=== PATIENT | female | born 1960 | race Caucasian/White ===

== ENCOUNTER → 2016-07-24 | Outpatient (CLI) | payer BC, OTHER ==
--- NOTE | 2016-07-24 14:24 | REP ---
Clinical: Pain and swelling primarily along the first plantar surface. Technique: AP, lateral, bilateral oblique views. Findings: No acute fracture or dislocation. Skeletal structures, joint spaces, and surrounding soft tissues are normal for age. No significant overt osteoarthritic degenerative changes. No abnormal calcifications. Impression: Normal left foot by radiographic evaluation. Signed by Kei Crespo MD 07/24/2016 02:14 P
== END ==
LOC: M LRY 13:49
PROVIDERS: ATTEND Nurse Practitioner Family
DX: M79.672 Pain in left foot (principal)

== ENCOUNTER → 2016-11-23 | Outpatient (CLI) | payer OTHER ==
[~2016-11-23] MED LIST: SENN8.6T7 PO
--- NOTE | 2016-11-23 15:59 | REP ---
RIGHT LOWER EXTREMITY DUPLEX DOPPLER VENOUS ULTRASOUND WITH EVALUATION FOR VENOUS REFLUX: Real-time compression and duplex Doppler interrogation of right lower extremity deep vein system is performed. Right common femoral, superficial femoral and popliteal veins are fully compressible with transducer pressure and demonstrate normal spontaneous and phasic flow without evidence of deep vein thrombosis. There is partial duplication of the mid to distal superficial femoral vein. Lymph node in the right inguinal region measures 2.0 x 0.9 x 0.8 cm. Evaluation for venous reflux demonstrates reflux throughout the deep vein system of a relatively mild degree. There is no evidence of an anterior accessory greater saphenous vein. There is significant reflux throughout the greater saphenous vein in the proximal thigh. Greater saphenous vein measures 10 mm with reflux duration 3.1 seconds. In the mid-thigh dimension is 8 mm with reflux 2.2 seconds at the level of the knee greater saphenous vein diameter is 8 mm with reflux duration 1.8 seconds. Lesser saphenous vein is not visualized, reportedly this has been surgically removed. Multiple collateral vessels are seen diffusely extending to the anteromedial calf, the largest collateral is at the knee 10 mm in diameter. [employer] member is seen in the distal thigh extending from the greater saphenous vein to the superficial femoral vein distally with normal direction of flow. Signed by Willard Ferrer MD 11/23/2016 04:17 P
== END ==
LOC: M RAD 09:12
PROVIDERS: ATTEND Surgery
DX: I87.311 Chronic venous hypertension (idiopathic) with ulcer of right lower extremity (principal)

== ENCOUNTER 2017-01-09 13:05 | Day surgery (SDC) | payer OTHER ==
[~2017-01-09] VITALS: Ht 165.1 cm; Wt 65.8 kg
[2017-01-09] MEDS ORDERED: LR 1,000 ML IV ONE (13:30)
[2017-01-09] MEDS ORDERED: MIDAZOLAM INJ 2 MG/2 ML VIAL (J2250) As Ordered ONE (13:50)
[2017-01-09] MEDS ORDERED: fentaNYL 100 MCG/2 ML INJECTION (J3010) As Ordered ONE (13:50)
[2017-01-09] MEDS ORDERED: LIDOCAINE 1% SDV INJ 30 ML VIAL As Ordered ONE (13:54)
[2017-01-09] MEDS ORDERED: LIDOCAINE W/EPINEPHRINE 1% 20ML VIAL As Ordered ONE (13:54)
[2017-01-09] MEDS: PERCOCET 5MG/325MG TAB PO PRN ×2 (15:45→18:08)
[2017-01-09] MEDS ORDERED: PERCOCET 5MG/325MG TAB As Ordered ONE (15:45)
[2017-01-09] MEDS ORDERED: LR 1,000 ML IV SCH (16:00)
[2017-01-09] MEDS ORDERED: HYDROmorphone HCL 1 MG/ML SYRINGE (J1170) IV PRN (16:00)
[2017-01-09] MEDS ORDERED: ONDANSETRON 4MG/2ML VIAL (J2405) IV PRN (16:00)
[2017-01-09] MEDS ORDERED: fentaNYL 100 MCG/2 ML INJECTION (J3010) IV PRN (16:00)
[2017-01-09 18:50] VITALS: BP 141/75
--- NOTE | 2017-02-06 17:57 | RO ---
DATE OF PROCEDURE: 01/09/2017 PREPROCEDURE DIAGNOSES: Right lower extremity varicose veins with pain. Right lower extremity valvular insufficiency in the greater saphenous vein. POSTPROCEDURE DIAGNOSES: Right lower extremity varicose veins with pain. Right lower extremity valvular insufficiency in the greater saphenous vein. OPERATIVE PROCEDURE: Right greater saphenous vein radiofrequency ablation with greater than stab phlebectomy of varicose veins in the right lower extremity. SURGEON: Mile Whitman MD TELEGRAPH EQUIPMENT MAINTAINER: ANESTHESIA: Laryngeal mask airway (LMA). ESTIMATED BLOOD LOSS: 100 mL IV FLUIDS: 500 mL SPECIMENS: Right lower extremity varicose vein. COMPLICATIONS: None. DRAINS: None. IMPLANTS: None. INDICATION: The patient is a 56-year-old female with varicose veins and pain in her lower extremities who was evaluated and found to have greater saphenous vein valvular insufficiency. Recommendation was to undergo greater saphenous vein radiofrequency ablation and stab phlebectomy of the painful varicose veins. Risks, benefits and alternative treatment options were discussed with the patient. Alternative treatment options included but were not limited to no intervention. DESCRIPTION OF PROCEDURE: The patient was taken to the operating room, placed supine on the operating room table and the right lower extremity was prepped and draped in a standard surgical fashion. The left greater saphenous vein was cannulated in the below knee region using ultrasound, after which a catheter was placed in the greater saphenous vein 2 cm distal to the saphenofemoral junction and tumescent solution injected circumferentially around the greater saphenous, which was then ablated 2 cm distal to the saphenofemoral junction to the below knee entry site. Once the radiofrequency ablation was completed the stab phlebectomies were performed with greater than 20 stab phlebectomies of varicose veins which had been marked in the standing position in the preoperative holding area. Phil were used to close the stab phlebectomy incisions. Dressings were then applied. The patient tolerated the procedure well. All instrument, sponge and needle counts were correct at the end of the case. There were no complications. Dr. Whitman was present for and directed the entire case. The patient was transferred to the recovery room, awake, alert and extubated and in stable condition.
== END 2017-01-09 18:55 | disposition home or self-care (01) ==
LOC: M SDC 13:05
PROVIDERS: ATTEND Surgery Vascular Surgery
DX: I83.811 Varicose veins of right lower extremity with pain (principal); I87.2 Venous insufficiency (chronic) (peripheral)

== ENCOUNTER → 2017-01-18 | Outpatient (CLI) | payer OTHER ==
--- NOTE | 2017-01-18 10:29 | REP ---
Right lower extremity deep vein duplex ultrasound: The patient has had superficial vein ablation. The deep veins demonstrate normal compression, normal Doppler color flow and normal Doppler waveforms with respiration augmentation at multiple levels from the popliteal vein to the common femoral vein. There is no deep vein thrombus. There is thrombus throughout the superficial saphenous vein as expected as a consequence of ablation. Signed by Willard Pratt MD 01/18/2017 10:20 A
== END ==
LOC: M RAD 09:11
PROVIDERS: ATTEND Surgery Vascular Surgery
DX: I83.811 Varicose veins of right lower extremity with pain (principal)

== ENCOUNTER → 2017-01-24 | Outpatient (CLI) | payer OTHER ==
--- NOTE | 2017-01-25 03:54 | REP ---
Clinical: Venous insufficiency . Technique: Ferrer scale and color Doppler evaluation using linear high frequency transducer with reflux evaluation . Findings: Ultrasound examination of the left lower extremity deep venous structures from the common femoral vein to the popliteal vein demonstrates normal compressibility flow and wave patterns in response to respiration and augmentation. There is no evidence for deep venous thrombosis. Reflux evaluation demonstrates significant reflux through the deep system including common femoral vein, superficial femoral vein and popliteal vein as well as the greater saphenous vein and its multiple collaterals. Specifically, proximal greater saphenous vein dilates to a 9.9 mm with reflux duration of 2 seconds; the mid greater saphenous vein dilates to a 4.8 mm with reflux duration 1.8 seconds; distal greater saphenous vein dilates to 8.2 mm with reflux duration of 2 seconds. An anterior accessory saphenous vein was identified without evidence for reflux and a lesser saphenous vein was identified without reflux draining into the Giacomini vein. Impression: 1. No evidence for deep venous thrombosis. 2. Reflux noted through the deep and superficial venous systems as described above. Signed by Kei Crespo MD 01/25/2017 03:45 A
== END ==
LOC: M RAD 10:39
PROVIDERS: ATTEND Surgery Vascular Surgery
DX: I87.2 Venous insufficiency (chronic) (peripheral) (principal)

== ENCOUNTER 2017-04-08 11:04 | Day surgery (SDC) | payer OTHER ==
[~2017-04-08] VITALS: Ht 162.6 cm; Wt 66.2 kg
[2017-04-08] MEDS ORDERED: LR 1,000 ML IV ONE (11:15)
[2017-04-08] MEDS ORDERED: PROPOFOL 200 MG/20 ML VIAL As Ordered ONE (11:23)
[2017-04-08] MEDS ORDERED: LIDOCAINE 2% INJ 100 MG/5 ML SDV (FOR ANES.) As Ordered ONE (11:23)
[2017-04-08] MEDS ORDERED: ONDANSETRON 4MG/2ML VIAL (J2405) As Ordered ONE (11:23)
[2017-04-08] MEDS ORDERED: fentaNYL 100 MCG/2 ML INJECTION (J3010) As Ordered ONE (11:24)
[2017-04-08] MEDS ORDERED: MIDAZOLAM INJ 2 MG/2 ML VIAL (J2250) As Ordered ONE (11:24)
[2017-04-08] MEDS ORDERED: LIDOCAINE 1% SDV INJ 30 ML VIAL As Ordered ONE (13:27)
[2017-04-08] MEDS ORDERED: LIDOCAINE W/EPINEPHRINE 1% 20ML VIAL As Ordered ONE ×2 (13:27→13:30)
[2017-04-08] MEDS ORDERED: MORPHINE 10 MG/ML 1ML VIAL As Ordered ONE (15:37)
[2017-04-08] MEDS: MORPHINE 10 MG/ML 1ML VIAL IV PRN ×5 (15:45→16:20)
[2017-04-08] MEDS ORDERED: ONDANSETRON 4MG/2ML VIAL (J2405) IV PRN (15:45)
[2017-04-08] MEDS ORDERED: fentaNYL 100 MCG/2 ML INJECTION (J3010) IV PRN (15:45)
[2017-04-08] MEDS ORDERED: LR 1,000 ML IV SCH (15:45)
[2017-04-08] MEDS ORDERED: PERCOCET 5MG/325MG TAB PO PRN (15:45)
[2017-04-08 17:05] VITALS: BP 138/73
--- NOTE | 2017-04-19 17:57 | RO ---
DATE OF PROCEDURE: 04/08/2017 PREOPERATIVE DIAGNOSIS: Bilateral lower extremity varicose veins, bilateral lower extremity greater saphenous vein venous insufficiency bilateral lower extremity pain and swelling. POSTOPERATIVE DIAGNOSIS: Bilateral lower extremity varicose veins, bilateral lower extremity greater saphenous vein venous insufficiency bilateral lower extremity pain and swelling. PROCEDURE: Left greater saphenous vein radiofrequency ablation, greater than 20 left lower extremity varicose vein stab phlebectomy. SURGEON: Dr. Alberto Whitman TUBE CLEANING OPERATOR: None. ANESTHESIA: Local monitored anesthetic care (MAC). ESTIMATED BLOOD LOSS: 100 mL. IV FLUIDS: 700 mL. INDICATION: Patient is a 56-year-old female with multiple varicosities in the lower extremities and in the thigh, calf, and ankle region who has a significant amount of heaviness, pain and swelling in her lower extremities who underwent an ultrasound showing that she had greater saphenous vein valvular insufficiency. Patient will undergo a left greater saphenous vein radiofrequency ablation and stab phlebectomy of painful varicose veins. Risks, benefits, and alternative treatment options were discussed with the patient, alternative treatment options included but were not limited to no intervention. PROCEDURE: Patient was taken to the operating room and placed supine on the operating room table after having the varicosities in the left lower extremity marked in the preoperative area in the standing position. Ultrasound was then used to cannulate the left greater saphenous vein after which a radiofrequency ablation was performed from 2 cm distally in the saphenofemoral junction to the entry site in the left below knee region. After the ablation the stab phlebectomies were performed with greater than 20 stab phlebectomies, varicose vein was passed for pathological evaluation and jolene were used to close the stab phlebectomy sites. Dressings were applied. Patient tolerated the procedure well. All instruments, sponge and needle counts were correct at the end of the case. There were no complications. Dr. Whitman was present for and directed the entire case. Patient was transferred to the recovery room and discharged in stable condition.
== END 2017-04-08 17:20 | disposition home or self-care (01) ==
LOC: M SDC 11:04
PROVIDERS: ATTEND Surgery Vascular Surgery
DX: I83.813 Varicose veins of bilateral lower extremities with pain (principal); I87.2 Venous insufficiency (chronic) (peripheral); R06.83 Snoring; Z85.038 Personal history of other malignant neoplasm of large intestine; Z92.21 Personal history of antineoplastic chemotherapy; Z78.0 Asymptomatic menopausal state

== ENCOUNTER → 2017-04-12 | Outpatient (CLI) | payer OTHER ==
--- NOTE | 2017-04-12 11:58 | REP ---
LEFT LOWER EXTREMITY DUPLEX DOPPLER VENOUS ULTRASOUND: Real-time compression and duplex Doppler interrogation of left lower extremity deep venous systems is performed status post ablation. There is thrombus in the greater saphenous vein which extends into the common femoral vein for a length of 9 mm. Otherwise, the remaining common femoral vein, superficial femoral vein, and popliteal vein are all fully compressible with transducer pressure and demonstrate no evidence of deep venous thrombosis. Signed by Willard Ferrer MD 04/12/2017 04:58 P
== END ==
LOC: M RAD 10:12
PROVIDERS: ATTEND Surgery Vascular Surgery
DX: I87.393 Chronic venous hypertension (idiopathic) with other complications of bilateral lower extremity (principal)

== ENCOUNTER → 2017-09-26 | Outpatient (CLI) | payer BC | LOC: M RAD 13:28 | DX: I87.302 Chronic venous hypertension (idiopathic) without complications of left lower extremity (principal) | CPT/HCPCS: 93971 ==

== ENCOUNTER → 2017-12-07 | Outpatient (CLI) | payer BC | LOC: M LRY 13:30 | DX: M79.89 Other specified soft tissue disorders (principal) | CPT/HCPCS: 96372 ==

== ENCOUNTER 2018-01-30 09:52 | Day surgery (SDC) | payer BC ==
[2018-01-30] MEDS ORDERED: LR 1,000 ML IV ×2 (10:00→15:30)
[2018-01-30] MEDS: BUPIVACAINE HCL 0.5% 10 ML VIAL As Ordered (14:40)
[2018-01-30] MEDS: LIDOCAINE 1% MDV 20ML VIAL As Ordered (14:40)
[2018-01-30] MEDS ORDERED: LIDOCAINE 2% INJ 100 MG/5 ML SDV (FOR ANES.) As Ordered (14:46)
[2018-01-30] MEDS ORDERED: ONDANSETRON 4MG/2ML VIAL (J2405) As Ordered (14:46)
[2018-01-30] MEDS ORDERED: fentaNYL 250 MCG/5 ML INJECTION (J3010) As Ordered (14:46)
[2018-01-30] MEDS ORDERED: KETAMINE HCL 200 MG/20 ML VIAL As Ordered (14:46)
[2018-01-30] MEDS ORDERED: MIDAZOLAM INJ 2 MG/2 ML VIAL (J2250) As Ordered (14:46)
[2018-01-30] MEDS ORDERED: PROPOFOL 200 MG/20 ML VIAL As Ordered ×2 (14:46→14:57)
[2018-01-30] MEDS ORDERED: ONDANSETRON 4MG/2ML VIAL (J2405) IV (15:30)
[2018-01-30] MEDS: PERCOCET 5MG/325MG TAB PO (15:47)
== END 2018-01-30 16:55 | disposition home or self-care (01) ==
LOC: M SDC 09:52
DX: I83.813 Varicose veins of bilateral lower extremities with pain (principal); I87.2 Venous insufficiency (chronic) (peripheral); I87.393 Chronic venous hypertension (idiopathic) with other complications of bilateral lower extremity; R06.83 Snoring; Z85.030 Personal history of malignant carcinoid tumor of large intestine; Z92.21 Personal history of antineoplastic chemotherapy; Z87.81 Personal history of (healed) traumatic fracture; Z78.0 Asymptomatic menopausal state
CPT/HCPCS: 37766

== ENCOUNTER 2018-03-07 07:03 | Day surgery (SDC) | payer BC ==
[~2018-03-07 07:03] MED LIST changes: +LIDOCAINE 1% MDV 20ML VIAL SQ; -SENN8.6T7 PO
[2018-03-07] MEDS: LR 1,000 ML IV (07:37)
[2018-03-07] MEDS ORDERED: PROPOFOL 200 MG/20 ML VIAL As Ordered ×2 (07:59→08:08)
[2018-03-07] MEDS ORDERED: LIDOCAINE 2% INJ 100 MG/5 ML SDV (FOR ANES.) As Ordered (07:59)
[2018-03-07] MEDS ORDERED: MIDAZOLAM INJ 2 MG/2 ML VIAL (J2250) As Ordered (08:00)
[2018-03-07] MEDS ORDERED: fentaNYL 100 MCG/2 ML INJECTION (J3010) As Ordered (08:00)
[2018-03-07] MEDS ORDERED: dexameTHASONE 4 MG/ML 1ML VIAL (J1100) As Ordered (08:46)
[2018-03-07] MEDS ORDERED: ONDANSETRON 4MG/2ML VIAL (J2405) As Ordered (08:46)
[2018-03-07] MEDS: LIDOCAINE W/EPINEPHRINE 1% 20ML VIAL As Ordered (08:56)
[2018-03-07] MEDS ORDERED: PERCOCET 5MG/325MG TAB As Ordered (09:18)
[2018-03-07] MEDS: PERCOCET 5MG/325MG TAB PO (09:19)
== END 2018-03-07 10:01 | disposition home or self-care (01) ==
LOC: M SDC 07:03
DX: I83.812 Varicose veins of left lower extremity with pain (principal); Z85.038 Personal history of other malignant neoplasm of large intestine; Z92.21 Personal history of antineoplastic chemotherapy
CPT/HCPCS: 37766

== ENCOUNTER → 2018-03-14 | Outpatient (CLI) | payer BC | LOC: M RAD 10:13 | DX: I87.2 Venous insufficiency (chronic) (peripheral) (principal) | CPT/HCPCS: 93971 ==